=== PATIENT | male | born 1950 | race Caucasian/White ===

== ENCOUNTER → 2016-09-05 | Outpatient (CLI) | payer BC ==
[~2016-09-05] MED LIST: BUSP-8 PO; DUTA0.5C PO; MULTTAB58 PO; PANT40TA PO; PENT100C6 PO; PRAZ1CAP28 PO; PROP1TAB PO; PRVHFAIN INH; SYMIN160 INH; TRAZ50TA35 PO; VENL150T33 PO
== END | disposition home or self-care (01) ==
LOC: C.LAB1850 11:06
PROVIDERS: ATTEND Internal Medicine Pulmonary Disease
DX: J45.909 Unspecified asthma, uncomplicated (principal); J01.90 Acute sinusitis, unspecified; J20.9 Acute bronchitis, unspecified

== ENCOUNTER → 2017-11-11 | Day surgery (SDC) | payer OTHER, BC ==
[2017-11-04 08:53] VITALS: Ht 162.6 cm; Wt 75.0 kg
[~2017-11-11] VITALS: Ht 162.6 cm; Wt 75.0 kg
[~2017-11-11] MED LIST changes: +ALBU18002 INH; +ATROPINE SULFATE 0.1 MG/ML 5ML SYR IV PRN; +CARB25TA12 PO; -DUTA0.5C PO; +EpHEDrine SULFATE INJ 50 MG/ML AMP IV PRN; +LIDOCAINE HCL 2% 2 ML VIAL (20MG/ML) ONE; +MIDAZOLAM HCL 1 MG/ML 2ML VIAL ONE; -PRAZ1CAP28 PO; +PROPOFOL IV EMULSION 10 MG/ML 20 ML VIAL ONE; +SODIUM CHLORIDE 0.9% 500ML 500 ML IV ONE; +TAMS0.4C38 PO; +TIOT1SPR INH; -TRAZ50TA35 PO; +VENL-273 PO; -VENL150T33 PO
--- NOTE | 2017-11-11 14:00 | Endo History and Physical ---
History & Physical Date of Service: November 11, 2017. Chief Complaint: HX OF POLYPS, FAMILY HX OF COLON CA Referring Physician: DR. CHINCHILLA History of Present Illness colon polyps Past Surgical History Hx Cardiac Surgery: No Hx Internal Defibrillator: No Hx Pacemaker: No Hx Abdominal Surgery: Yes (RESECTION OF HEPATIC CYST, HERNIA, ADRIANA) Hx of Implantable Prosthesis: No Hx Post-Op Nausea and Vomiting: No (DENIES ANY COMPLICATIONS WITH ANESTHESIA.) Hx Cancer Surgery: No Hx Thoracic Surgery: No Hx Orthopedic: Yes (BL TKA; SPINAL SURGERY X3; BL CARPAL TUNNEL; LEFT ELBOW SURGERY) Hx Urinary Tract Surgery: Yes (CYSTOSCOPY WITH INTERSTITIAL CYSTITIS.) Family History Colon CA, Polyp Social History Smoking Status: Current Every Day Smoker Hx Substance Use: Yes (MARIJUANA USE 4X A DAY) Hx Alcohol Use: Yes (ABOUT A BEER EVERY OTHER DAY) Allergies Coded Allergies: Aspirin (Verified Allergy, Mild, OTHER, 11/04/17) TOLD TO NOT TAKE WITH COPD. Penicillins (Verified Allergy, Mild, RASH, 11/04/17) Adhesives (Verified Adverse Reaction, Unknown, TEARING OF SKIN, 11/04/17) Current Medications Reported Home Medications Medications Dose Route/Sig Max Daily Dose Days Date Category Dose Instructions Sinemet 25MG/100MG (Carbidopa/Levodopa) Tab 1 Tab PO TID 11/04/17 Reported TAKES DAILY AT 7AM, 12PM, 5PM (30 MIN BEFORE FOOD) Proair Respiclick (Albuterol Sulfate) 108 Mcg/Act Aer 1-2 Puffs INH Q4 PRN 11/04/17 Reported Spiriva Respimat (Tiotropium [place]) 2.5 Mcg/Act Spr 2 Puff INH DAILY 11/04/17 Reported Venlafaxine Hcl Er (Venlafaxine Hcl) 75 Mg Tab 3 Tabs PO DAILY 11/04/17 Reported Flomax (Tamsulosin Hcl) 0.4 Mg Cap 1 Cap PO DAILY 30 11/04/17 Reported Ventolin Hfa (Albuterol) 60 Puffs/5400 Mcg Aers 2 Puffs INH Q4H 06/06/15 Reported Symbicort 160/4.5 Inhaler (Budesonide/Formoterol Fumarate) 120 Puffs/ Aero 2 Puffs INH BID 06/06/15 Reported Inderal (Propranolol HCl) 60 Mg Tab 60 Mg PO QAM 06/06/15 Reported Protonix (Pantoprazole Sodium) 40 Mg Tab 40 Mg PO DAILY 06/06/15 Reported Multivitamin (Multiple Vitamin) 1 Tab Tab 1 Tab PO DAILY 90 06/06/15 Reported Elmiron (Pentosan Polysulfate Sodium) 100 Mg Cap 100 Mg PO BID 06/06/15 Reported Buspirone Hcl 10 Mg Tab 1 Tab PO BID 30 06/06/15 Reported Vital Signs Weight (Kilograms): 75 Height (Feet): 5 Height (Inches): 4 Date Time Temp Pulse Resp B/P (MAP) Pulse Ox O2 Delivery O2 Flow Rate FiO2 11/11/17 12:37 36.6 65 16 116/76 (89) 97 Room Air Physical Exam General Appearance: WD/WN, no apparent distress Respiratory/Chest: Auscultation: breath sounds normal Cardiovascular: Heart Auscultation: RRR Abdomen: Bowel Sounds: normal Inspection & Palpation: soft, non-distended, no tenderness, guarding & rebound Assessment and Plan colon hx polyps
--- NOTE | 2017-11-11 14:35 | Discharge Instructions ---
Endoscopy Patient Instructions Date / Procedure(s) Performed November 11, 2017. Colonoscopy Allergy Information Coded Allergies: Aspirin (Verified Allergy, Mild, OTHER, 11/04/17) TOLD TO NOT TAKE WITH COPD. Penicillins (Verified Allergy, Mild, RASH, 11/04/17) Adhesives (Verified Adverse Reaction, Unknown, TEARING OF SKIN, 11/04/17) Discharge Date / Findings November 11, 2017. polyps- diverticulosis, hemorrhoids Medication Instructions Restart Stopped Medication(s): Reported Home Medications Medications Dose Route/Sig Max Daily Dose Days Date Category Dose Instructions Sinemet 25MG/100MG (Carbidopa/Levodopa) Tab 1 Tab PO TID 11/04/17 Reported TAKES DAILY AT 7AM, 12PM, 5PM (30 MIN BEFORE FOOD) Proair Respiclick (Albuterol Sulfate) 108 Mcg/Act Aer 1-2 Puffs INH Q4 PRN 11/04/17 Reported Spiriva Respimat (Tiotropium [place]) 2.5 Mcg/Act Spr 2 Puff INH DAILY 11/04/17 Reported Venlafaxine Hcl Er (Venlafaxine Hcl) 75 Mg Tab 3 Tabs PO DAILY 11/04/17 Reported Flomax (Tamsulosin Hcl) 0.4 Mg Cap 1 Cap PO DAILY 30 11/04/17 Reported Ventolin Hfa (Albuterol) 60 Puffs/5400 Mcg Aers 2 Puffs INH Q4H 06/06/15 Reported Symbicort 160/4.5 Inhaler (Budesonide/Formoterol Fumarate) 120 Puffs/ Aero 2 Puffs INH BID 06/06/15 Reported Inderal (Propranolol HCl) 60 Mg Tab 60 Mg PO QAM 06/06/15 Reported Protonix (Pantoprazole Sodium) 40 Mg Tab 40 Mg PO DAILY 06/06/15 Reported Multivitamin (Multiple Vitamin) 1 Tab Tab 1 Tab PO DAILY 90 06/06/15 Reported Elmiron (Pentosan Polysulfate Sodium) 100 Mg Cap 100 Mg PO BID 06/06/15 Reported Buspirone Hcl 10 Mg Tab 1 Tab PO BID 30 06/06/15 Reported Reported Home Medications Medications Dose Route/Sig Max Daily Dose Days Date Category Dose Instructions Sinemet 25MG/100MG (Carbidopa/Levodopa) Tab 1 Tab PO TID 11/04/17 Reported TAKES DAILY AT 7AM, 12PM, 5PM (30 MIN BEFORE FOOD) Proair Respiclick (Albuterol Sulfate) 108 Mcg/Act Aer 1-2 Puffs INH Q4 PRN 11/04/17 Reported Spiriva Respimat (Tiotropium [place]) 2.5 Mcg/Act Spr 2 Puff INH DAILY 11/04/17 Reported Venlafaxine Hcl Er (Venlafaxine Hcl) 75 Mg Tab 3 Tabs PO DAILY 11/04/17 Reported Flomax (Tamsulosin Hcl) 0.4 Mg Cap 1 Cap PO DAILY 30 11/04/17 Reported Ventolin Hfa (Albuterol) 60 Puffs/5400 Mcg Aers 2 Puffs INH Q4H 06/06/15 Reported Symbicort 160/4.5 Inhaler (Budesonide/Formoterol Fumarate) 120 Puffs/ Aero 2 Puffs INH BID 06/06/15 Reported Inderal (Propranolol HCl) 60 Mg Tab 60 Mg PO QAM 06/06/15 Reported Protonix (Pantoprazole Sodium) 40 Mg Tab 40 Mg PO DAILY 06/06/15 Reported Multivitamin (Multiple Vitamin) 1 Tab Tab 1 Tab PO DAILY 90 06/06/15 Reported Elmiron (Pentosan Polysulfate Sodium) 100 Mg Cap 100 Mg PO BID 06/06/15 Reported Buspirone Hcl 10 Mg Tab 1 Tab PO BID 30 06/06/15 Reported Provider Instructions Activity Restrictions - No exercising or heavy lifting for 24 hours. - Do not drink alcohol the day of the procedure. - Do not drive a car or operate machinery until the day after the procedure. - Do not make any important decisions or sign important papers in 24 hours after the procedure. Following Day: - Return to full activity which may include returning to work/school. Diet Start your diet with liquids and light foods (jello, soup, juice, toast). Then eat your usual diet if not nauseated. Treatment For Common After Affects For mild abdominal pain, bloating, or excessive gas: - Rest - Eat lightly - Lie on right side Follow-Up Information Follow-up with DR. CHINCHILLA as scheduled Anesthesia Information What You Should Know You have had a procedure that required some medicine to reduce anxiety and discomfort. This treatment is called moderate sedation. After receiving the treatment, you may be sleepy, but you will be able to breathe on your own. The effects of the treatment may last for several hours. Follow these instructions along with Activity/Diet recommendations noted above: * Do NOT do anything where dizziness or clumsiness would be dangerous. * Rest quietly at home today, then you can be up and about tomorrow. * Have a responsible person stay with you the rest of today. * You may have had an I.V. today. If so, you may take the dressing off later today. Recommendations Call your doctor if: * Trouble breathing * Continuous vomiting for more than 24 hours * Temperature above 101 degrees * Severe abdominal pain or bloating * Pain not relieved by pain medicine ordered * There is increased drainage or redness from any incision * A large amount of rectal bleeding greater than 2-3 tablespoons. (If you had a polyp/s removed or have hemorrhoids, a small amount of blood - from the rectum is to be expected.) * You have any unanswered questions or concerns. IN THE EVENT OF A SERIOUS EMERGENCY, GO TO THE NEAREST EMERGENCY ROOM Your discharge instructions were prepared by provider Gigi Lowery. Patient Instructions Signature Page Swapnil Mahan Patient (or Guardian) Signature/Date: I have read and understand the instructions given to me by my caregivers. Caregiver/RN/Doctor Signature/Date: The above-named patient and/or guardian has received patient instructions on this date. + Original Patient Signature Page (only) stays with chart. Please make copy for patient.
--- NOTE | 2017-11-11 14:36 | Anesthesiology Progress Note ---
Anesthesia Post Op Note Date & Time November 11, 2017 at 14:35 Vital Signs Pain Intensity: 7 Vital Signs Past 12 Hours Date Time Temp Pulse Resp B/P (MAP) Pulse Ox O2 Delivery O2 Flow Rate FiO2 11/11/17 12:37 36.6 65 16 116/76 (89) 97 Room Air Notes Mental Status: alert / awake / arousable, participated in evaluation Pt Amnestic to Procedure: Yes Nausea / Vomiting: adequately controlled Pain: adequately controlled Airway Patency, RR, SpO2: stable & adequate BP & HR: stable & adequate Hydration State: stable & adequate Anesthetic Complications: no major complications apparent
--- NOTE | 2017-11-11 14:58 | GI REPORT ---
Patient Name: Swapnil Mahan Procedure Date: 11/11/2017 2:06 PM Date of : 1950 Admit Type: Outpatient Age: 67 Gender: Male Attending MD: Gigi Lowery MD Procedure: Colonoscopy Providers: Gigi Lowery MD Referring MD: Shaq Smart Indications: Family history of colon cancer Medicines: Propofol per Anesthesia Complications: No immediate complications. Estimated blood loss: Minimal. Estimated Blood Loss: Estimated blood loss was minimal. Procedure: Pre-Anesthesia Assessment: - Prior to the procedure, a History and Physical was performed, and patient medications and allergies were reviewed. The patient's tolerance of previous anesthesia was also reviewed. The risks and benefits of the procedure and the sedation options and risks were discussed with the patient. All questions were answered, and informed consent was obtained. Prior Anticoagulants: The patient has taken no previous anticoagulant or antiplatelet agents. ASA Grade Assessment: III - A patient with severe systemic disease. After reviewing the risks and benefits, the patient was deemed in satisfactory condition to undergo the procedure. After I obtained informed consent, the scope was passed under direct vision. Throughout the procedure, the patient's blood pressure, pulse, and oxygen saturations were monitored continuously. The Scope was introduced through the anus and advanced to the terminal ileum, with identification of the appendiceal orifice and IC valve. The colonoscopy was performed without difficulty. The patient tolerated the procedure well. The quality of the bowel preparation was good. Findings: The perianal and digital rectal examinations were normal. Pertinent negatives include normal sphincter tone, no palpable rectal lesions and no anal lesion or abnormality was detected. A 4 mm polyp was found in the ascending colon. The polyp was sessile. The polyp was removed with a cold biopsy forceps. Resection and retrieval were complete. Estimated blood loss was minimal. Verification of patient identification for the specimen was done by the physician and precision agriculture technician using the patient's name and medical record number. Three sessile polyps were found in the transverse colon. The polyps were 4 mm in size. These polyps were removed with a cold biopsy forceps. Resection and retrieval were complete. Estimated blood loss was minimal. Verification of patient identification for the specimen was done by the physician and precision agriculture technician using the patient's name and medical record number. A few small-mouthed diverticula were found in the sigmoid colon. Non-bleeding internal hemorrhoids were found during retroflexion. The hemorrhoids were mild. The exam was otherwise without abnormality. Impression: - One 4 mm polyp in the ascending colon, removed with a cold biopsy forceps. Resected and retrieved. - Three 4 mm polyps in the transverse colon, removed with a cold biopsy forceps. Resected and retrieved. - Diverticulosis in the sigmoid colon. - Non-bleeding internal hemorrhoids. - The examination was otherwise normal. Recommendation: - Discharge patient to home (ambulatory). - Resume regular diet. - Continue present medications. - Await pathology results. - Repeat colonoscopy for surveillance based on pathology results. - Return to referring physician as previously scheduled. MD Gigi Chowdhury MD 11/11/2017 2:58:17 PM This report has been signed electronically. Note Initiated On: 11/11/2017 2:06 PM Number of Addenda: 0 I attest to the content of the Intraoperative Record and orders documented therein, exceptions below {[id number]}
[2017-11-11 15:18] VITALS: BP 108/61; PULSE 62; O2SAT 95
== END | disposition home or self-care (01) ==
LOC: C.GI 12:03
PROVIDERS: ATTEND Internal Medicine Gastroenterology
DX: D12.2 Benign neoplasm of ascending colon (principal); Z80.0 Family history of malignant neoplasm of digestive organs; J44.9 Chronic obstructive pulmonary disease, unspecified; G47.33 Obstructive sleep apnea (adult) (pediatric); K21.9 Gastro-esophageal reflux disease without esophagitis; G20 Parkinson's disease; F17.200 Nicotine dependence, unspecified, uncomplicated; F12.10 Cannabis abuse, uncomplicated; Z88.0 Allergy status to penicillin; Z86.010 Personal history of colon polyps; Z90.49 Acquired absence of other specified parts of digestive tract

== ENCOUNTER 2020-03-16 10:43 | Inpatient (IN) ==
--- NOTE | 2020-02-13 11:25 | PAT Medication Instructions ---
Medication Instructions Date of Service February 13, 2020 Home Medications Medication Instructions Recorded budesonide-formoterol HFA 160 2 puffs INH BID #6 gm 02/03/19 mcg-4.5 mcg/actuation aerosol inhaler gabapentin 300 mg capsule 300 mg PO HS #90 cap 02/03/19 carbidopa 25 mg-levodopa 100 mg 3 tab PO TID #90 tab 12/16/19 tablet budesonide-formoterol HFA 160 mcg-4.5 mcg/actuation aerosol inhaler 2 puffs INH BID buspirone 10 mg tablet 10 mg PO TID gabapentin 300 mg capsule 300 mg PO HS pantoprazole 40 mg tablet,delayed release 40 mg PO QAM tamsulosin 0.4 mg capsule 0.4 mg PO QAM tiotropium bromide 2.5 mcg/actuation mist for inhalation 2 puffs INH QAM Elmiron 200 mg PO BID Glucosamine Chondroitin 1 cap PO QAM albuterol sulfate See Rx Instructions .ROUTE .COMPLEX PRN melatonin 6 mg PO HS carbidopa 25 mg-levodopa 100 mg tablet 3 tab PO TID venlafaxine 75 mg tablet,extended release 24 hr 225 mg PO QAM budesonide 0.5 mg IRRIGATION QAM naproxen 375 mg PO BID PRN ASK your surgeon for instructions naproxen 375 mg PO BID PRN ASK your prescriber and surgeon Elmiron 200 mg PO BID STOP taking 2 weeks before surgery (or as soon as possible if surgery is within 2 weeks) Glucosamine Chondroitin 1 cap PO QAM Take morning of surgery With a small sip of water, OTHERWISE NOTHING TO EAT OR DRINK AFTER MIDNIGHT: budesonide-formoterol HFA 160 mcg-4.5 mcg/actuation aerosol inhaler 2 puffs INH BID buspirone 10 mg tablet 10 mg PO TID pantoprazole 40 mg tablet,delayed release 40 mg PO QAM tamsulosin 0.4 mg capsule 0.4 mg PO QAM tiotropium bromide 2.5 mcg/actuation mist for inhalation 2 puffs INH QAM albuterol sulfate See Rx Instructions .ROUTE .COMPLEX PRN (use if needed; please bring with you to hospital day of surgery if possible) carbidopa 25 mg-levodopa 100 mg tablet 3 tab PO TID venlafaxine 75 mg tablet,extended release 24 hr 225 mg PO QAM budesonide 0.5 mg IRRIGATION QAM Take evening before surgery budesonide-formoterol HFA 160 mcg-4.5 mcg/actuation aerosol inhaler 2 puffs INH BID buspirone 10 mg tablet 10 mg PO TID gabapentin 300 mg capsule 300 mg PO HS albuterol sulfate See Rx Instructions .ROUTE .COMPLEX PRN (if needed) melatonin 6 mg PO HS carbidopa 25 mg-levodopa 100 mg tablet 3 tab PO TID Other Notes If you have any questions please call us at [phone] or [phone] or [phone] or [phone]
--- NOTE | 2020-02-15 09:37 | Anesthesiology Consultation ---
Date of Service February 15, 2020 Assessment & Plan (1) Encounter for pre-operative examination: *Per PAT assessment on 02/14: Travel screen negative. No positive COVID contacts. No current COVID-19 related symptoms. Surgeon arranging preop COVID testing. Awaiting results. - Right RCR: 09/15/19: LMA#5 + PNB at [facility] Chart Review Chart Review: Acceptable Risk for Surgery and Patient seen in Pre Admission Testing Teaching & Discussion Pre-Anesthesia Teaching/Discussion Notes: Instructed NPO after midnight before surgery,except medications with 15 cc of water. Medication instructions pro vided according to the PAT guidelines. History Surgery Operation Date: 03/16/20 13:35 Proposed Procedures p Right Reverse Total Shoulder Arthroplasty - Oj Mcginnis, Height/Weight Height: 5 ft 5 in Weight: 72.6 kg Allergies Allergy/AdvReac Type Severity Reaction Status Date / Time amoxicillin Allergy Mild Rash Verified 02/08/20 08:29 aspirin Allergy Mild Per Verified 02/08/20 08:29 patient, advised to avoid (patient unsure of reason) Penicillins Allergy Mild Rash Verified 02/08/20 08:29 adhesive AdvReac Intermediate Tearing of Verified 02/08/20 08:29 skin Medications Home Medications Medication Instructions Recorded Confirmed Last Taken budesonide-formoterol HFA 160 2 puffs INH BID #6 gm 02/03/19 02/08/20 09/15/19 05:45 mcg-4.5 mcg/actuation aerosol inhaler buspirone 10 mg tablet 10 mg PO TID 02/03/19 02/08/20 09/15/19 05:45 gabapentin 300 mg capsule 300 mg PO HS #90 cap 02/03/19 02/08/20 Unknown pantoprazole 40 mg tablet,delayed 40 mg PO QAM 02/03/19 02/08/20 09/15/19 05:45 release tamsulosin 0.4 mg capsule 0.4 mg PO QAM 02/03/19 02/08/20 09/15/19 05:45 tiotropium bromide 2.5 2 puffs INH QAM 02/03/19 02/08/20 09/15/19 05:45 mcg/actuation mist for inhalation Elmiron 200 mg PO BID 08/25/19 02/08/20 09/15/19 05:45 Glucosamine Chondroitin 1 cap PO QAM 08/25/19 02/08/20 Unknown albuterol sulfate See Rx Instructions .ROUTE 08/25/19 02/08/20 Unknown .COMPLEX PRN melatonin 6 mg PO HS 08/25/19 02/08/20 Unknown carbidopa 25 mg-levodopa 100 mg 3 tab PO TID #90 tab 12/16/19 02/08/20 Unknown tablet venlafaxine 75 mg tablet,extended 225 mg PO QAM tab 01/04/20 02/08/20 Unknown release 24 hr budesonide 0.5 mg IRRIGATION QAM 02/08/20 02/08/20 Unknown naproxen 375 mg PO BID PRN 02/08/20 02/08/20 Unknown Past Medical History Medical History Anemia chronic Anxiety Benign essential tremor BPH (benign prostatic hyperplasia) Depression Gait disturbance GERD (gastroesophageal reflux disease) controlled Interstitial lung disease per patient, previously asthma suspected but further workup felt more consistent with interstitial disease Kidney stones MCI (mild cognitive impairment) with memory loss Obstructive sleep apnea no device Parkinson's disease stable, followed with [facility] neurology-- [place] [facility] Peripheral neuropathy Post traumatic stress disorder Torn rotator cuff Left Exercise / Class Metabolic Activity II 4-5 Yardwork/Stairs/Walk up hill (one flight of stairs (no chest or sob)) Past Family History Family History Father COPD (chronic obstructive pulmonary disease) Family/Other Diabetes Heart disease Colorectal cancer FATHER Hypertension Mother Pulmonary fibrosis Sister Pulmonary fibrosis Past Surgical History Surgical History Cervical vertebral fusion H/O resection of liver PARTIAL FOR CYST History of arthroplasty of knee History of back surgery LOWER BACK FUSION History of cholecystectomy WITH HERNIA REPAIR History of colonoscopy History of hand surgery R/L CTR/TRIGGER FINGER History of knee replacement R/L History of repair of right rotator cuff Right RCR: 09/15/19: LMA#5 + PNB at [facility] History of sinus surgery Past Anesthesia History No Hx of Anesthesia Complications and No Family Hx of Anesthesia Complications History of PONV No Hx of PONV and No Hx of Motion Sickness Social History Smoking Status: Current some day smoker tobacco type: cigarettes Do You Dip or Chew Tobacco: No Smoking End Date: Quit 09/2019 (previous tobacco use x 60 years) Hx Alcohol Use: No Hx Substance Use: Yes substance use type: marijuana Substance Use Type Other:: SMOKES MARIJUANA (INHALATION) 3+ X DAY (ADVISED [facility] PROTOCOL) Review of Systems Patient denies chest pain, shortness of breath, dyspnea on exertion, fever, chills, cough, wheezing, palpitations. Physical Exam Vital Signs VITALS BP 119/74 P 74 TEMP 98.4 SP02 95%RA RESP 18 PHYSICAL Decreased cervical extension s/p cervical fusion Full TMJ range of motion. TMD 3.5 finger breaths Mallampati Score 1 Dentition: full upper denture, partial lower Lungs: clear throughout to auscultation Cardiac: regular rate and rhythm, no murmurs noted Spine: normal Carotid arteries: negative bruit Extremities: no edema Testing Laboratory Results 02/15/20 09:59 02/15/20 09:59 PT 10.7 Seconds (9.0-12.0) 02/15/20 09:59 INR 1.0 (0.9-1.1) 02/15/20 09:59 APTT 25.6 Seconds (21.0-31.0) 02/15/20 09:59 Blood Type O Positive 02/15/20 09:59 Antibody Screen NEGATIVE 02/15/20 09:59 Electrocardiogram Date: 08/29/19 Findings: + NSR @ (63) Chest X-Ray Date: 08/29/19 There is thoracolumbar scoliosis. There is aortic tortuosity. There is no focal pulmonary consolidation. There is underlying interstitial thickening, likely chronic. There are no significant pleural effusions. IMPRESSION: Chronic interstitial thickening. No acute findings. Pulmonary Function Test Date: 11/15/18 Spirometry is within normal limits. Lung volumes are within normal limits. Diffusion capacity is within normal limits. FEV1 2.52.
[2020-02-15 10:22] LABS: Basophils # (auto) 0.02 K/uL (0-0.2); Basophils % (auto) 0.3 %; Eosinophils # (auto) 0.16 K/uL (0-0.5); Eosinophils % (auto) 2.8 %; Hematocrit (blood only) 41.9 % (42-52); Hemoglobin 13.7 g/dL (14.0-18.0); Immature Granulocytes # (auto) 0.02 K/uL (0.00-0.02); Immature Granulocytes % (auto) 0.3 %; Lymphocytes # (auto) 1.81 K/uL (1.2-3.4); Lymphocytes % (auto) 31.4 %; Mean Corpuscular Hemoglobin 28.7 pg (25-34); Mean Corpuscular Hgb Conc 32.7 g/dL (32-36); Mean Corpuscular Volume 87.7 fL (80-100); Monocytes # (auto) 0.45 K/uL (0.11-0.59); Monocytes % (auto) 7.8 %; Neutrophils # (auto) 3.31 K/uL (1.4-6.5); Neutrophils % (auto) 57.4 %; Platelet Count 215 K/uL (130-400); RDW Coefficient of Variation 14.5 % (11.5-14.5); RDW Standard Deviation 46.5 fL (36.4-46.3); Red Blood Count 4.78 M/uL (4.7-6.1); White Blood Count 5.77 K/uL (4.8-10.8)
[2020-02-15 10:32] LABS: Partial Thromboplastin Ratio 0.9; Partial Thromboplastin Time 25.6 Seconds (21.0-31.0); Prothrombin Time 10.7 Seconds (9.0-12.0)
[2020-02-15 11:18] LABS: Calcium 8.7 mg/dl (8.5-10.1); Creatinine Clr Calc Pharmacy 74.7 ml/min; Est GFR (African American) 104.9; Est GFR (Non-African American) 90.5; Potassium 4.5 mmol/L (3.5-5.1)
--- NOTE | 2020-03-15 06:41 | History & Physical Report ---
Date of Service March 15, 2020 Assessment & Plan (1) Rotator cuff tear, right: We will proceed with a right reverse shoulder arthroplasty. Postoperatively he will be placed in a sling and kept overnight in the hospital for postoperative medical management. He plans to go to outpatient therapy upon discharge. Present on Admission?: Yes History of Present Illness Chief Complaint: Rotator cuff arthropathy of the right shoulder Primary Care Provider: NO PCP Swapnil is a pleasant 69-year-old male who underwent a large chronic retracted rotator cuff repair about 6 months ago. He did not do well postoperatively. He did not have much pain in his shoulder but he continued to have pseudoparalysis. He was unable to do forward elevation. He did not feel physical therapy was helping. Functionally he cannot live with his shoulder the way it was. After failing conservative treatment, he elected to proceed with a right reverse shoulder arthroplasty. Allergies Allergy/AdvReac Type Severity Reaction Status Date / Time amoxicillin Allergy Mild Rash Verified 02/08/20 08:29 aspirin Allergy Mild Per Verified 02/08/20 08:29 patient, advised to avoid (patient unsure of reason) Penicillins Allergy Mild Rash Verified 02/08/20 08:29 adhesive AdvReac Intermediate Tearing of Verified 02/08/20 08:29 skin Home Medications Home Medications Medication Instructions Recorded Confirmed Type budesonide-formoterol HFA 160 2 puffs INH BID #6 gm 02/03/19 02/08/20 Rx mcg-4.5 mcg/actuation aerosol inhaler buspirone 10 mg tablet 10 mg PO TID 02/03/19 02/08/20 History gabapentin 300 mg capsule 300 mg PO HS #90 cap 02/03/19 02/08/20 Rx pantoprazole 40 mg tablet,delayed 40 mg PO QAM 02/03/19 02/08/20 History release tamsulosin 0.4 mg capsule 0.4 mg PO QAM 02/03/19 02/08/20 History tiotropium bromide 2.5 2 puffs INH QAM 02/03/19 02/08/20 History mcg/actuation mist for inhalation Elmiron 200 mg PO BID 08/25/19 02/08/20 History Glucosamine Chondroitin 1 cap PO QAM 08/25/19 02/08/20 History albuterol sulfate See Rx Instructions .ROUTE 08/25/19 02/08/20 History .COMPLEX PRN melatonin 6 mg PO HS 08/25/19 02/08/20 History carbidopa 25 mg-levodopa 100 mg 3 tab PO TID #90 tab 12/16/19 02/08/20 Rx tablet venlafaxine 75 mg tablet,extended 225 mg PO QAM tab 01/04/20 02/08/20 History release 24 hr budesonide 0.5 mg IRRIGATION QAM 02/08/20 02/08/20 History naproxen 375 mg PO BID PRN 02/08/20 02/08/20 History Past Med/Surg History Medical History Anemia chronic Anxiety Benign essential tremor BPH (benign prostatic hyperplasia) Depression Gait disturbance GERD (gastroesophageal reflux disease) controlled Interstitial lung disease per patient, previously asthma suspected but further workup felt more consistent with interstitial disease Kidney stones MCI (mild cognitive impairment) with memory loss Obstructive sleep apnea no device Parkinson's disease stable, followed with [facility]-- being transferred to [facility] for future Peripheral neuropathy Post traumatic stress disorder Torn rotator cuff Left Surgical History Cervical vertebral fusion H/O resection of liver PARTIAL FOR CYST History of arthroplasty of knee History of back surgery LOWER BACK FUSION History of cholecystectomy WITH HERNIA REPAIR History of colonoscopy History of hand surgery R/L CTR/TRIGGER FINGER History of knee replacement R/L History of repair of right rotator cuff Right RCR: 09/15/19: LMA#5 + PNB at [facility] History of sinus surgery Family History Father COPD (chronic obstructive pulmonary disease) Family/Other Diabetes Heart disease Colorectal cancer FATHER Hypertension Mother Pulmonary fibrosis Sister Pulmonary fibrosis Social History Smoking Status: Current some day smoker Second Hand Exposure: Yes; Hx Alcohol Use: No Hx Substance Use: Yes Substance Use Type Other:: SMOKES MARIJUANA (INHALATION) 3+ X DAY (ADVISED [facility] PROTOCOL) Preferred Language: Maldivian Communication Ability: Effective Aircraft Systems Technician Required: No Beliefs That Will Affect Care: None Current Living Situation: Spouse Feels Safe at Home: Yes Review of Systems Review of Systems: All systems reviewed & are unremarkable except as noted in HPI & below Physical Exam Constitutional: WD/WN, vitals as above Eyes: PERRL, conjunctivae normal, anicteric sclerae ENMT: external ear and nose normal, oropharynx normal Neck: trachea midline, no thyromegaly Respiratory: normal respiratory effort Cardiovascular: RRR, no murmur, no edema Gastrointestinal (Abdomen): normal bowel sounds, soft, nontender, no hepatosplenomegaly Musculoskeletal: Physical examination of the right shoulder reveals decreased range of motion and significant weakness. There is tenderness palpation along the anterior glenohumeral joint line. The right upper extremity is neurovascularly intact. Psychiatric: A+Ox3, euthymic affect Results & Data Results & Data ([facility]) Diagnostic Findings Radiographs of the right shoulder show some signs of osteoarthritis with blunting of the greater tuberosity and some superior migration of the humeral head on the glenoid. PG Care Time/CCT Total # of Minutes Spent Total Time Spent with Patient: Total time spent is greater than 50% in coordination of care (as documented) at patient's floor/unit and/or counseling patient: Coding Level of Care Code None Diagnoses Rotator cuff tear, right M75.101
[~2020-03-16 10:43] MED LIST changes: +ACETAMINOPHEN 500 MG TAB PO SCH; -ALBU18002 INH; -ATROPINE SULFATE 0.1 MG/ML 5ML SYR IV PRN; +BUPIVACAINE 0.5 % 5 MG/1 ML PF 10ML VIAL ONE; -BUSP-8 PO; -CARB25TA12 PO; -EpHEDrine SULFATE INJ 50 MG/ML AMP IV PRN; +FAMOTIDINE 20 MG TAB PO SCH; +GABAPENTIN 300 MG CAP PO SCH; -LIDOCAINE HCL 2% 2 ML VIAL (20MG/ML) ONE; +LR 15ML/HR IV SCH; +LR 60ML/HR IV SCH; -MULTTAB58 PO; -PANT40TA PO; -PENT100C6 PO; -PROP1TAB PO; -PROPOFOL IV EMULSION 10 MG/ML 20 ML VIAL ONE; -PRVHFAIN INH; +ROPIVACAINE 0.5% HCL/PF 150 MG, BUPIVACAINE 0.5% MPF 30 ML, EPINEPHrine 30MG/30ML (OR U... INSTIL SCH; -SODIUM CHLORIDE 0.9% 500ML 500 ML IV ONE; -SYMIN160 INH; -TAMS0.4C38 PO; -TIOT1SPR INH; +TRANEXAMIC ACID 1,000 MG **IV Intra-op IV SCH; +TRANEXAMIC ACID 1,000 MG **IV Pre-op IV SCH; -VENL-273 PO; +ceFAZolin 1000MG 1,000 MG/7.5 ML SYR IV SCH; +dexAMETHasone 4 MG TAB PO SCH; +fentaNYL citrate 100 MCG/2 ML VIAL ONE
--- NOTE | 2020-03-16 11:20 | History & Physical Bridge Note ---
Date of Service March 16, 2020 History & Physical Bridge Note I have examined the patient, reviewed the History & Physical and in the interval since the performance of the History & Physical I have noted the following changes of clinical significance: no changes noted
[2020-03-16] MEDS ORDERED: ORTHO JOINT ANESTHETIC ONE (11:54)
[2020-03-16] MEDS ORDERED: LIDOCAINE HCL 2% MPF (LOCAL) 5 ML VIAL INFIL ONE (12:42)
[2020-03-16] MEDS ORDERED: ONDANSETRON INJ 2 MG/ML 2 ML VIAL IV PRN ×2 (14:04→15:52)
[2020-03-16] MEDS ORDERED: fentaNYL citrate 100 MCG/2 ML VIAL IV PRN (14:04)
[2020-03-16] MEDS ORDERED: ePHEDrine sulfate 50 MG/ML AMP IV PRN (14:04)
[2020-03-16] MEDS ORDERED: PROMETHAZINE HCL 12.5 MG in SODIUM CHLORIDE 0.9% 50 ML IV PRN (14:04)
[2020-03-16] MEDS ORDERED: METOCLOPRAMIDE HCL INJ 5 MG/ML 2 ML VIAL IV PRN ×2 (14:04→15:52)
[2020-03-16] MEDS ORDERED: ATROPINE SULFATE 0.1 MG/ML 10ML SYR IV PRN (14:04)
[2020-03-16] MEDS ORDERED: HYDROmorphone INJ 2 MG/ML SYR/VIAL IV PRN (14:04)
[2020-03-16] MEDS ORDERED: ePHEDrine sulfate 50 MG/ML SYR ONE (14:36)
[2020-03-16] MEDS ORDERED: PROPOFOL IV EMULSION 10 MG/ML 20 ML VIAL IV ONE (14:36)
[2020-03-16] MEDS ORDERED: ROCURONIUM BROMIDE 10 MG/ML 5 ML VIAL IV ONE (14:36)
[2020-03-16] MEDS ORDERED: ONDANSETRON INJ 2 MG/ML 2 ML VIAL ONE (14:37)
[2020-03-16] MEDS ORDERED: DEXAMETHASONE SOD INJ 4 MG/ML VIAL ONE (14:37)
--- NOTE | 2020-03-16 14:40 | Operative Report ---
PG Post Operative Report Pre & Post Diagnosis Operation Date: 03/16/20 13:05 Pre-Op Diagnosis: Rotator cuff arthropathy of the right shoulder Post-Op Diagnosis: Rotator cuff arthropathy of the right shoulder I identified the patient and participated in the time-out.: Yes Procedure Operation Date: 03/16/20 13:05 Actual Procedures p Right Reverse Total Shoulder Arthroplasty(Right) - Oj Mcginnis DO Surgeon Oj Mcginnis DO Compliance Vice President Oj Aldrich PAC Estimated Blood Loss 250 Findings Consistent with Post-Op Diagnosis Specimens Right humeral head Complications none Disposition Disposition: Recovery Room Indications wSapnil is a pleasant 69-year-old male who I did a large right rotator cuff repair on over 6 months ago. Unfortunately he never was able to regain forward elevation. After failing conservative treatment, he elected to proceed with a right reverse shoulder arthroplasty. Description of Procedure Implants used: I used a Biomet Comprehensive reverse total shoulder arthroplasty system with a size 11 press fit micro humeral stem, a +6 humeral tray and a standard humeral bearing, a 25 mm small augment baseplate with a 6.5 mm central screw and superior and inferior locking screws, and a size 40 eccentric glenosphere. Swapnil arrived at [facility] for the above procedure. He was seen in the preoperative holding area and the operative extremity was identified and signed. He was given a preoperative antibiotic, TXA, and an interscalene nerve block. He was taken back to the operating room, laid on table in supine position, and put under general anesthesia. He was then put into the beachchair position. The shoulder was then prepped and draped in sterile fashion. A timeout was done and the patient and the operative extremity was properly identified. A deltopectoral approach was used. Dissection was taken down through the fascia and the deltoid was retracted laterally and the conjoined tendon was retracted medially. The anterior shoulder was exposed. The biceps tendon was absent from the previous procedure. The subscapularis was then directly released off the lesser tuberosity with a peel technique. The inferior capsule was released and the humeral head was dislocated. A canal finding reamer was sent down the center of the humeral canal. Sequential reaming up to a size 11 reamer was done. Off that reamer, a proximal humeral resection guide was placed. The proximal humerus was resected at 135 of inclination and 25 of retroversion. Osteophytes were then removed and the glenoid was exposed. Time was spent doing a complete capsular and labral release. The glenoid guide was then placed in the inferior aspect of the glenoid. A 3.2 mm Steinmann pin was then placed into the glenoid vault at 10 of inclination. The glenoid baseplate was then reamed. The final size 25 mm small augment baseplate was then impacted in the place. A 6.5 mm central screw was then placed followed by superior and inferior locking screws. A 40 mm eccentric glenosphere was then impacted into place. Surrounding soft tissues were then injected with 100 cc an orthopedic pain control cocktail. The proximal humerus was then exposed. Sequential broaching of the humerus up to a size 11 broach was done. Off that broach a +6 humeral tray was trialed. The shoulder was then reduced, brought through a full range of motion, and felt to be stable. The shoulder was then dislocated and the broach was removed. The final size 11 micro press-fit humeral stem was then impacted into place. A standard humeral bearing was then snapped onto a +6 humeral tray. The humeral tray was then impacted onto the humeral stem. The shoulder was once again reduced, brought through a full range of motion, and felt to be stable. The subscapularis was then tenodesed back to the lesser tuberosity with transosseous FiberWire sutures and side to side sutures with the arm in 45 of external rotation. A dilute betadyne lavage was then done for 3 minutes. The joint was then irrigated with normal saline solution. Hemostasis was obtained. The interval was closed with 2-0 Vicryl suture. The skin was then closed with 2-0 Vicryl and joyce. A Silverlon dressing was placed and the arm was rested in a regular arm sling. He was then extubated and transferred to a hospital bed. He taken to the postanesthesia care unit in stable condition. He tolerated the procedure well. Oj Aldrich PA-C, was present for the entire procedure. He was critical for patient positioning, prepping, draping, retraction exposure, wound closure and application of sterile dressing. I attest to the content of the Intraoperative Record and any orders documented therein. Any exceptions are noted below.
--- NOTE | 2020-03-16 15:26 | Anesthesiology Progress Note ---
Date of Service March 16, 2020 Anesthesia Post Procedure Vital Signs Vital Signs: Temp Pulse Pulse Resp BP Pulse Ox 03/16/20 15:10 79 15 113/68 94 03/16/20 15:03 36.7 C 97 H 16 121/72 94 03/16/20 12:02 72 18 121/77 95 03/16/20 11:13 37.3 C 62 18 119/72 95 Transfer of Care Handoff Completed per policy Notes Mental Status: alert / awake / arousable and participated in evaluation Patient Amnestic to Procedure: Yes Nausea / Vomiting: adequately controlled Pain: adequately controlled Airway Patency, RR, SpO2: stable & adequate BP & HR: stable & adequate Hydration State: stable & adequate Anesthetic Complications: no major complications apparent
--- NOTE | 2020-03-16 15:30 | XRay Report ---
XR shoulder RT min 2V routine HISTORY: 69 years-old Male Post shoulder surgery right shoulder total joint arthroplasty COMPARISON: Chest radiograph 08/29/2019 TECHNIQUE: 2 views of the right shoulder FINDINGS: Reverse right shoulder total joint arthroplasty demonstrates satisfactory alignment. Overlying skin s taples are noted along with expected postsurgical soft tissue swelling and deep tissue air. No acute fracture or on expected retained foreign body. Imaged lung felder appear clear. IMPRESSION: Reverse right shoulder total joint arthroplasty with expected postsurgical changes. ACT 112: Negative or not required by law. The above report was generated using voice recognition software. It may contain grammatical, syntax o r spelling errors. Electronically signed by: Cullen Jorge M.D. 03/16/2020 3:29 PM
[2020-03-16] MEDS ORDERED: NALOXONE HCL 0.4 MG/1 ML VIAL/CARP IV PRN (15:52)
[2020-03-16] MEDS ORDERED: bisacodyL 10 MG SUPP PR PRN (15:52)
[2020-03-16] MEDS ORDERED: HYDROmorphone INJ 0.5 MG/0.5 ML SYR IV PRN (15:52)
[2020-03-16] MEDS ORDERED: oxyCODONE HCL IR 5 MG TAB (IMMEDIATE RELEASE) PO PRN (15:52)
[2020-03-16] MEDS ORDERED: SODIUM CHLORIDE 0.9% 1000ML 1,000 ML IV SCH (15:52)
[2020-03-16] MEDS ORDERED: MAGNESIUM HYDROXIDE SUSP 30 ML UDC PO PRN (15:52)
[2020-03-16] MEDS ORDERED: ALBUTEROL HFA 8 GM INHALER INH PRN (15:58)
[2020-03-16] MEDS: KETOROLAC TROMETHAMINE 15 MG/ML VIAL IV SCH ×2 (17:37→22:01)
[2020-03-16] MEDS: CARBIDOPA/LEVODOPA 25/100MG TAB PO SCH (20:20)
[2020-03-16] MEDS: PENTOSAN POLYSULFATE SODIUM 100 MG CAP PO SCH (20:20)
[2020-03-16] MEDS: busPIRone 5 MG TAB PO SCH (20:20)
[2020-03-16] MEDS: DOCUSATE SODIUM 100 MG CAP PO SCH (20:20)
[2020-03-16] MEDS: ceFAZolin 2000MG 2,000 MG/15 ML SYR IV SCH (20:27)
[2020-03-16] MEDS ORDERED: SENNA 8.6 MG TAB PO SCH (21:00)
[2020-03-16] MEDS ORDERED: GABAPENTIN 300 MG CAP PO SCH (21:00)
[2020-03-16] MEDS ORDERED: MELATONIN 3 MG TAB PO SCH (21:00)
[2020-03-16] MEDS: ACETAMINOPHEN 500 MG TAB PO SCH (22:00)
[2020-03-17] MEDS: KETOROLAC TROMETHAMINE 15 MG/ML VIAL IV SCH ×2 (05:04→10:29)
[2020-03-17] MEDS: ceFAZolin 2000MG 2,000 MG/15 ML SYR IV SCH (05:04)
[2020-03-17] MEDS: ACETAMINOPHEN 500 MG TAB PO SCH (05:05)
[2020-03-17 06:23] LABS: Hematocrit (blood only) 34.8 % (42-52); Hemoglobin 11.7 g/dL (14.0-18.0); Immature Granulocytes # (auto) 0.01 K/uL (0.00-0.02); Immature Granulocytes % (auto) 0.1 %; Lymphocytes # (auto) 0.83 K/uL (1.2-3.4); Lymphocytes % (auto) 10.9 %; Mean Corpuscular Hemoglobin 29.4 pg (25-34); Mean Corpuscular Hgb Conc 33.6 g/dL (32-36); Mean Corpuscular Volume 87.4 fL (80-100); Mean Platelet Volume 9.2 fL (7.4-10.4); Monocytes # (auto) 0.44 K/uL (0.11-0.59); Monocytes % (auto) 5.8 %; Neutrophils # (auto) 6.34 K/uL (1.4-6.5); Neutrophils % (auto) 83.2 %; Platelet Count 172 K/uL (130-400); RDW Coefficient of Variation 14.9 % (11.5-14.5); RDW Standard Deviation 48.1 fL (36.4-46.3); Red Blood Count 3.98 M/uL (4.7-6.1); White Blood Count 7.62 K/uL (4.8-10.8)
[2020-03-17 06:57] LABS: BUN Creatinine Ratio 19.1 (10-20); Calcium 8.8 mg/dl (8.5-10.1); Creatinine Clr Calc Pharmacy 73.4 ml/min; Est GFR (African American) 100.9; Potassium 4.1 mmol/L (3.5-5.1)
--- NOTE | 2020-03-17 07:45 | Orthopedic Progress Note ---
Date of Service March 17, 2020 Assessment & Plan (1) Status post reverse arthroplasty of right shoulder: Overall he is doing very well. He is not having any pain in the right shoulder. He will be seen by physical therapy this morning for ambulation and range of motion exercises. He can be discharged home later today. He will follow-up with orthopedics in 2 weeks. Present on Admission?: Yes Admission and Anticipated Discharge Date Admission Date: March 16, 2020 Ben Kraft was seen and examined at bedside this morning. Overall he is doing well. He is not having much pain in the right shoulder. He was able to get some sleep last night. He has no complaints. Physical Exam 2 Musculoskeletal: On physical examination of the right shoulder, there is a little bit of bleeding on the dressing but there is no drainage from it. He is wearing his sling as instructed. His radial, median, and ulnar nerves are checked and intact his wrist. His axillary nerve was not checked yet. Results & Data ([facility]) Vital Signs (Past 12 Hours) Vital Signs Temp Pulse Resp BP Pulse Ox 03/17/20 07:30 62 14 95 03/17/20 03:42 36.9 C 66 16 123/73 94 03/16/20 23:38 36.6 C 61 18 115/67 92 Laboratory Results H & H 02/15/20 03/17/20 Range/Units 09:59 06:05 Hgb 13.7 L 11.7 L (14.0-18.0) g/dL Hct 41.9 L 34.8 L (42-52) % Coagulation 02/15/20 Range/Units 09:59 INR 1.0 (0.9-1.1) Diagnostic Findings Postoperative x-rays of the right shoulder show the prosthesis to be in anatomic alignment without any evidence of fracture, dislocation, or loosening. PG Care Time/CCT Total # of Minutes Spent Total Time Spent with Patient: Total time spent is greater than 50% in coordination of care (as documented) at patient's floor/unit and/or counseling patient: Coding Level of Care Code None Diagnoses Status post reverse arthroplasty of right shoulder Z96.611
[2020-03-17] MEDS ORDERED: dexAMETHasone 4 MG TAB PO SCH (08:00)
[2020-03-17] MEDS ORDERED: BUDESONIDE 0.5 MG/2 ML VIAL (PULMICORT) INH SCH (08:00)
[2020-03-17 08:04] VITALS: BP 129/74; TEMP 98.1; O2SAT 93
--- NOTE | 2020-03-17 08:18 | Anesthesiology Progress Note ---
Date of Service March 17, 2020 Anesthesia Post Procedure Vital Signs Vital Signs: Temp Pulse Pulse Pulse Resp BP Pulse Ox 03/17/20 08:00 36.7 C 65 18 129/74 93 03/17/20 07:30 62 14 95 03/17/20 03:42 36.9 C 66 16 123/73 94 03/16/20 23:38 36.6 C 61 18 115/67 92 03/16/20 19:11 36.8 C 72 18 122/76 92 03/16/20 16:57 36.8 C 91 H 18 109/64 93 03/16/20 16:25 36.8 C 85 17 109/69 93 03/16/20 15:50 36.7 C 81 18 114/69 94 03/16/20 15:40 69 20 115/68 93 03/16/20 15:30 80 20 111/69 93 03/16/20 15:20 36.4 C L 77 18 113/74 93 03/16/20 15:10 79 15 113/68 94 03/16/20 15:03 36.7 C 97 H 16 121/72 94 03/16/20 12:02 72 18 121/77 95 03/16/20 11:13 37.3 C 62 18 119/72 95 Pain Intensity Right Shoulder: Pain Intensity: 0 Notes Mental Status: alert / awake / arousable Patient Amnestic to Procedure: Yes Nausea / Vomiting: adequately controlled Pain: adequately controlled Airway Patency, RR, SpO2: stable & adequate BP & HR: stable & adequate Hydration State: stable & adequate Anesthetic Complications: no major complications apparent and Pt Satisfied with anesthetic care
[2020-03-17] MEDS: DOCUSATE SODIUM 100 MG CAP PO SCH (08:37)
[2020-03-17] MEDS: PENTOSAN POLYSULFATE SODIUM 100 MG CAP PO SCH (08:38)
[2020-03-17] MEDS: CARBIDOPA/LEVODOPA 25/100MG TAB PO SCH (08:38)
[2020-03-17] MEDS: busPIRone 5 MG TAB PO SCH (08:39)
[2020-03-17] MEDS ORDERED: PANTOprazole 40 MG TAB PO SCH (09:00)
[2020-03-17] MEDS ORDERED: FLUTICASONE/VILANTEROL 200/25MCG 14 PUFFS/INHALER INH SCH (09:00)
[2020-03-17] MEDS ORDERED: MULTIVITAMIN TAB PO SCH (09:00)
[2020-03-17] MEDS ORDERED: VENLAFAXINE HCL XR 75 MG CAPXR PO SCH (09:00)
[2020-03-17] MEDS ORDERED: TAMSULOSIN HCL 0.4 MG CAP PO SCH (09:00)
[2020-03-17] MEDS ORDERED: UMECLIDINIUM BROMIDE 62.5MCG/BLISTER 7 PUFFS/INHALER INH SCH (09:00)
[2020-03-17 09:52] VITALS: PULSE 69
--- NOTE | 2020-03-27 15:06 | Discharge Summary ---
Date of Service March 27, 2020 Admission HPI Per Admitting Provider Swapnil is a pleasant 69-year-old male who underwent a large chronic retracted rotator cuff repair about 6 months ago. He did not do well postoperatively. He did not have much pain in his shoulder but he continued to have pseudoparalysis. He was unable to do forward elevation. He did not feel physical therapy was helping. Functionally he cannot live with his shoulder the way it was. After failing conservative treatment, he elected to proceed with a right reverse shoulder arthroplasty. Principal Diagnosis Reverse right shoulder replacement Discharge Data Allergies Allergy/AdvReac Type Severity Reaction Status Date / Time amoxicillin Allergy Mild Rash Verified 03/16/20 11:07 aspirin Allergy Mild Per Verified 03/16/20 11:07 patient, advised to avoid (patient unsure of reason) Penicillins Allergy Mild Rash Verified 03/16/20 11:07 adhesive AdvReac Intermediate Tearing of Verified 03/16/20 11:07 skin Consultations 03/16/20 15:52 Consult Case Management - Discharge Planning Routine Procedures Performed Operation Date: 03/16/20 13:05 Actual Procedures p Right Reverse Total Shoulder Arthroplasty(Right) - Oj Mcginnis DO Ordered Studies 03/16/20 05:00 US - OR guided needle placemen Routine Hospital Course (1) Status post reverse arthroplasty of right shoulder: On March 16, [address] [facility] and underwent a right reverse shoulder arthroplasty without complication. He had a general anesthetic and a right interscalene nerve block. Postoperatively he was placed in a sling and transferred to the general orthopedic floors. His hospital course was uneventful. On postop day #1 his H&H was stable and his pain was well controlled. He was able to participate well with physical therapy doing ambulation and range of motion exercises. He was then discharged home. He will follow-up with orthopedics in 2 weeks. Total Time Total Time Spent Total Time Spent (In Minutes): 20 Discharge Plan Discharge Items Patient Disposition: Home - Home Health Services Reason For Visit: Degenerative Joint Disease, Right Shoulder Discharge Diagnosis: Right reverse shoulder replacement Activity: As commented below Non-emergency contact: Surgeon Call non-emergency contact if: your wound has increased redness and your wound has increased drainage Follow-up/Referrals: PCP,NO [Primary Care Provider] - Diet: Regular Addtl Attending Provider Instructions: Activity and Therapy Recommendations: * If you are using [facility] then therapy will be provided at your home until they feel you have accomplished all of your goals. * If you are using [facility] then Physical Therapy will be provided until they feel you are ready to start Outpatient Physical Therapy. * If you are not using home therapy then Outpatient Physical Therapy should st art about 3-5 days from your day of surgery. Therapy will last about 8-12 weeks * Wear your sling for 3 weeks, unless otherwise instructed. You may remove your sling to shower and to dress, but otherwise, you should be in your sling at all times, including while sleeping * The shoulder replacement is very stable and you can use your hand while in the sling * You were shown a series of exercises in the hospital. Do these exercises daily including the exercises you were shown in physical therapy. Medications: * Narcotic You will likely be sent home from the hospital with a prescription for the narcotic pain medication that worked best throughout your stay. * Other medications may be prescribed for specific circumstances. If you have any questions, please call the office at . * Resume previous home medications unless otherwise instructed Dressing Care: Leave the Silverlon dressing in place for 7 days. After 7 days you may remove the dressing. If the incision is not draining then you may leave the joyce open to air. If there is a little bit of drainage or if the joyce are getting stuck on your clothing then cover the incision with a dry dressing. The joyce will be removed at your 2 week follow-up appointment. Showering: You may shower with the Silverlon dressing in place. Do not let the shower spray hit the dressing directly. Pat the Silverlon dressing dry. If the dressing becomes wet underneath, then simply remove the dressing. Keep the incision dry until you are 7 days out from the day of surgery. After 7 days you may remove the Silverlon dressing and shower with the joyce exposed. Let soapy water run over the joyce and pat them dry. Do not scrub or soak the incision. Things To Watch For: * Drainage from the incision site that occurs more than one week after your surgery. * Increased redness at the incision site. * Fever above 102 degrees Fahrenheit. * Unusual chest pain or shortness of breath. * Call [facility] at with any of the above problems Follow-Up Visit: Follow-up with Dr. Mcginnis's PA (Oj Aldrich) 2-3 weeks after your day of surgery. He will remove your joyce and answer any questions. If you have any additional questions or concerns, Dr Mcginnis is usually in the office at the same time and will be available An appointment was probably scheduled when you signed-up for surgery in the office. If you have any questions call More detailed instructions as well as Frequently Asked Questions were provided in a folder by our office when you signed-up for surgery. Please review these instructions when you get home. If you have any further questions or concerns, please feel free to call the office at [phone] Pending Studies at Discharge: No Stand-Alone Forms: [facility], Opioid Pain Management Medications and DC Order Prescriptions: New oxycodone 5 mg Tablet 5 mg PO Q4H PRN (Reason: pain) Qty: 30 RF: 0 Continued buspirone 10 mg tablet 10 mg PO TID RF: 0 gabapentin 300 mg capsule 300 mg PO HS Qty: 90 RF: 3 pantoprazole 40 mg tablet,delayed release (DR/EC) 40 mg PO QAM RF: 0 Spiriva Respimat 2.5 mcg/actuation mist 2 puffs INH QAM RF: 0 Symbicort 160-4.5 mcg/actuation HFA aerosol inhaler 2 puffs INH BID Qty: 6 RF: 2 tamsulosin 0.4 mg capsule 0.4 mg PO QAM RF: 0 carbidopa-levodopa 25-100 mg tablet 3 tab PO TID Qty: 90 RF: 2 venlafaxine 75 mg tablet extended release 24hr 225 mg PO QAM RF: 0 naproxen 375 mg Tablet 375 mg PO BID PRN (Reason: Pain) RF: 0 budesonide 0.5 mg/2 mL Suspension For Nebulization 0.5 mg irrigation QAM RF: 0 multivitamin with minerals Tablet 1 tab PO DAILY RF: 0 Glucosamine Chondroitin 550-30-1 mg Capsule 1 cap PO QAM RF: 0 albuterol sulfate 90 mcg/actuation aerosol powdr breath activated See Rx Instructions .ROUTE .COMPLEX PRN (Reason: Wheezing) RF: 0 melatonin 3 mg Tablet 6 mg PO HS RF: 0 Elmiron 100 mg capsule 200 mg PO BID RF: 0 Discharge Orders: Discharge Order (Routine); Ordered 03/17/20 Ordered By: Oj Rucker/Other Patient Handouts: Parkinson's Disease: Home Safety Admission Data Admit Date/Time: 03/16/20 14:58 Attending Provider: Oj Mcginnis Admit Provider: Oj Mcginnis Primary Care Provider: PCP,NO Other Interventions: Discharge Summary Assessment (RN) Last Done: 03/17/20 09:50 Coding Level of Care Code D/C Day Management <30 mins Diagnoses Status post reverse arthroplasty of right shoulder Z96.611
== END 2020-03-17 11:00 | disposition home health service (06) | DRG 483 ==
LOC: ASU 10:43 → 3E 14:58